=== PATIENT | male | born 2000 | race Caucasian/White ===

== ENCOUNTER 2021-04-07 13:47 | Inpatient (IN) | payer MEDICAID ==
[~2021-04-07] VITALS: Ht 185.4 cm; Wt 66.0 kg
--- NOTE | 2021-04-07 13:54 | NUR ---
PT BROUGHT IN A IFT FROM [place] FOR CHIEF COMPLAINT OF RIGHT HIP FX.
[2021-04-07 14:27] LABS: BASOPHILS % (AUTO) 1 % (0-1); EOSINOPHILS % (AUTO) 1 % (1-7); LYMPHOCYTES % (AUTO) 16 % (22-44); MEAN CORPUSCULAR HEMOGLOBIN 32.1 pg (27.5-34.5); MEAN CORPUSCULAR HGB CONC 33.1 g/dL (33.2-36.2); MEAN PLATELET VOLUME 8.3 fL (7.4-10.4); MONOCYTES % (AUTO) 6 % (2-9); NEUTROPHILS % (AUTO) 76 % (42-75); PLATELET COUNT 284 x10^3/uL (130-400); RED BLOOD COUNT 3.87 x10^6/uL (4.38-5.82); RED CELL DISTRIBUTION WIDTH 13.3 % (9.4-14.8)
[2021-04-07 14:33] LABS: ALANINE AMINOTRANSFERASE 58 U/L (12-78); ALBUMIN 3.4 g/dL (3.4-5.0); ANION GAP 19 mmol/L (5-15); CALCIUM 8.4 mg/dL (8.5-10.1); CHLORIDE 106 mmol/L (98-107); CREATININE 0.91 mg/dL (0.7-1.3)
[2021-04-07 14:36] LABS: ALKALINE PHOSPHATASE 105 U/L (45-117); BILIRUBIN,TOTAL 1.9 mg/dL (0.2-1.0); TOTAL PROTEIN 7.2 g/dL (6.4-8.2)
--- NOTE | 2021-04-07 16:50 | NUR ---
OFF THE FLOOR TO MRI
[2021-04-07] MEDS ORDERED: GADOTERATE 7.5 MMOL/15ML SYR ONE (17:13)
--- NOTE | 2021-04-07 18:15 | NUR ---
PT HAVING BOUTS OF DIARRHEA. PT PLACED IN ADULT DIAPER WITH CHUCKS UNDERNEATH HIM. MD GRAY ADVISED.
[2021-04-07] MEDS ORDERED: PLEASE ENTER ALLERGIES MC SCH (19:00)
[2021-04-07] MEDS ORDERED: SODIUM CHLORIDE FLUSH 10ML SYR IVF ONE (19:00)
[2021-04-07] MEDS ORDERED: SODIUM CHLORIDE FLUSH 10ML SYR IVF PRN (19:00)
[2021-04-07] MEDS ORDERED: SODIUM CHLORIDE 0.9% 1,000ML IVBOLUS ONE (19:00)
[2021-04-07] MEDS ORDERED: ONDANSETRON 2MG/ML, 2ML IVPush ONE (19:00)
[2021-04-07] MEDS ORDERED: MORPHINE SULFATE 4 MG/ML, 1ML IVPush PRN (19:00)
[2021-04-07] MEDS ORDERED: SODIUM CHLORIDE 0.9% 1,000 ML IV ONE (19:00)
--- NOTE | 2021-04-07 19:13 | NUR ---
REPORT RECIEVED FROM VIKRAM JEONG
[2021-04-07] MEDS ORDERED: ONDANSETRON 2MG/ML, 2ML ONE (19:35)
[2021-04-07] MEDS ORDERED: MORPHINE SULFATE 4 MG/ML, 1ML ONE (19:35)
--- NOTE | 2021-04-07 19:43 | NUR ---
PT CLEANED UP, MEDICATED FOR PAIN PER EMAR, BOLUS RUNNING. NO OTHER NEEDS AT THIS TIME
[2021-04-07] MEDS ORDERED: INSU100C SQ-INSULIN (19:46)
[2021-04-07] MEDS ORDERED: INSU100V8 SQ (19:46)
--- NOTE | 2021-04-07 20:07 | NUR ---
hosp at bedside
--- NOTE | 2021-04-07 20:26 | NUR ---
report to donovan mckeon
[2021-04-07] MEDS ORDERED: DOCUSATE 100 MG CAPSULE PO PRN (20:30)
[2021-04-07] MEDS ORDERED: MELATONIN 5 MG TABLET PO PRN (20:30)
[2021-04-07] MEDS ORDERED: ONDANSETRON 2MG/ML, 2ML IVPush PRN (20:30)
[2021-04-07 20:45] VITALS: BP 104/52
[2021-04-07] MEDS: INSULIN LISPRO 100 UNITS/ML, PEN SQ-INSULIN SCH (22:17)
[2021-04-07] MEDS: SODIUM CHLORIDE 0.9% 1,000 ML IV SCH (22:17)
[2021-04-07] MEDS: morphine SULFATE 10 MG/ML, 1ML IVPush PRN (22:44)
[2021-04-08 00:48] VITALS: BP 102/61
[2021-04-08] MEDS: SODIUM CHLORIDE 0.9% 1,000 ML IV SCH ×4 (04:47→12:00)
[2021-04-08] MEDS: morphine SULFATE 10 MG/ML, 1ML IVPush PRN ×2 (04:47→10:14)
[2021-04-08 04:52] LABS: BASOPHILS % (AUTO) 0 % (0-1); EOSINOPHILS % (AUTO) 0 % (1-7); LYMPHOCYTES % (AUTO) 18 % (22-44); MEAN CORPUSCULAR HEMOGLOBIN 32.3 pg (27.5-34.5); MEAN PLATELET VOLUME 8.1 fL (7.4-10.4); MONOCYTES % (AUTO) 9 % (2-9); NEUTROPHILS % (AUTO) 73 % (42-75); PLATELET COUNT 284 x10^3/uL (130-400); RED BLOOD COUNT 3.91 x10^6/uL (4.38-5.82); RED CELL DISTRIBUTION WIDTH 13.1 % (9.4-14.8)
[2021-04-08 05:03] LABS: ANION GAP 25 mmol/L (5-15); CALCIUM 7.5 mg/dL (8.5-10.1); CHLORIDE 107 mmol/L (98-107); CREATININE 1.07 mg/dL (0.7-1.3); INTERNATIONAL NORMALIZED RATIO 0.97 (0.93-1.1); PROTHROMBIN TIME 10.4 Seconds (9.6-11.5)
[2021-04-08 05:14] VITALS: BP 81/39
[2021-04-08] MEDS ORDERED: SODIUM CHLORIDE 0.9% 1,000ML IVBOLUS ONE (05:30)
[2021-04-08 05:54] LABS: O2 FLOW ROOM AIR L/min
[2021-04-08 06:34] LABS: ACETONE, SERUM Large (80mg/dL) (Negative)
[2021-04-08] MEDS: SODIUM CHLORIDE 0.9% 1,000ML IVBOLUS ONE ×2 (07:00→07:07)
[2021-04-08] MEDS: D5%-0.45NACL+KCL 20MEQ 1,000 ML IV SCH ×3 (07:00→22:22)
[2021-04-08] MEDS: INSULIN LISPRO 100 UNITS/ML, PEN SQ-INSULIN SCH ×4 (07:00→20:05)
[2021-04-08] MEDS: REGULAR INSULIN 100 UNITS in SODIUM CHLORIDE 0.9% 99 ML IV PRN (07:03)
[2021-04-08 10:59] LABS: ANION GAP 22 mmol/L (5-15); CALCIUM 6.9 mg/dL (8.5-10.1); CHLORIDE 113 mmol/L (98-107); CREATININE 1.02 mg/dL (0.7-1.3)
[2021-04-08] MEDS ORDERED: CALCIUM GLUCONATE 9.2 MEQ in SODIUM CHLORIDE 0.9% 100 ML IV ONE (11:30)
[2021-04-08] MEDS ORDERED: OXYcodone IR 5MG TABLET ONE (13:15)
[2021-04-08] MEDS: OXYcodone IR 5MG TABLET PO PRN ×2 (13:16→23:05)
[2021-04-08 14:24] LABS: ANION GAP 12 mmol/L (5-15); CALCIUM 7.4 mg/dL (8.5-10.1); CHLORIDE 115 mmol/L (98-107); CREATININE 0.91 mg/dL (0.7-1.3)
[2021-04-08] MEDS ORDERED: POTASSIUM CHLORIDE 20 MEQ TAB.ER.PRT PO ONE (16:00)
[2021-04-08] MEDS ORDERED: POTASSIUM CHLORIDE 20 MEQ in SODIUM CHLORIDE 0.9% 250 ML IV ONE (17:00)
[2021-04-08 19:11] LABS: ANION GAP 12 mmol/L (5-15); CALCIUM 7.5 mg/dL (8.5-10.1); CHLORIDE 115 mmol/L (98-107); CREATININE 0.87 mg/dL (0.7-1.3)
[2021-04-08 22:57] LABS: ANION GAP 10 mmol/L (5-15); CALCIUM 7.7 mg/dL (8.5-10.1); CHLORIDE 114 mmol/L (98-107); CREATININE 0.93 mg/dL (0.7-1.3)
[2021-04-09] MEDS: INSULIN LISPRO 100 UNITS/ML, PEN SQ-INSULIN SCH ×4 (03:02→22:44)
[2021-04-09 03:33] LABS: ANION GAP 8 mmol/L (5-15); CALCIUM 7.7 mg/dL (8.5-10.1); CHLORIDE 112 mmol/L (98-107); CREATININE 0.89 mg/dL (0.7-1.3)
[2021-04-09 03:39] LABS: BASOPHILS % (AUTO) 0 % (0-1); EOSINOPHILS % (AUTO) 1 % (1-7); LYMPHOCYTES % (AUTO) 22 % (22-44); MEAN CORPUSCULAR HEMOGLOBIN 32.7 pg (27.5-34.5); MEAN CORPUSCULAR HGB CONC 34.5 g/dL (33.2-36.2); MEAN PLATELET VOLUME 7.9 fL (7.4-10.4); MONOCYTES % (AUTO) 6 % (2-9); NEUTROPHILS % (AUTO) 70 % (42-75); PLATELET COUNT 255 x10^3/uL (130-400); RED BLOOD COUNT 3.27 x10^6/uL (4.38-5.82); RED CELL DISTRIBUTION WIDTH 12.6 % (9.4-14.8)
[2021-04-09] MEDS: REGULAR INSULIN 100 UNITS in SODIUM CHLORIDE 0.9% 99 ML IV PRN (06:11)
[2021-04-09] MEDS: D5%-0.45NACL+KCL 20MEQ 1,000 ML IV SCH ×2 (06:11→14:50)
[2021-04-09 07:24] LABS: ANION GAP 8 mmol/L (5-15); CALCIUM 7.8 mg/dL (8.5-10.1); CHLORIDE 112 mmol/L (98-107); CREATININE 0.93 mg/dL (0.7-1.3)
[2021-04-09] MEDS ORDERED: DEXTROSE 50%, 50ML SYRINGE IVPush PRN (09:00)
[2021-04-09] MEDS ORDERED: DEXTROSE 4 GM TAB.CHEW PO PRN (09:00)
[2021-04-09] MEDS ORDERED: GLUCAGON 1 MG IM PRN (09:00)
[2021-04-09] MEDS ORDERED: INSULIN GLARGINE 100 UNITS/ML, PEN SQ-INSULIN SCH (09:00)
[2021-04-09] MEDS ORDERED: INSULIN GLARGINE 100 UNITS/ML, PEN SQ-INSULIN ONE ×2 (09:00→21:00)
[2021-04-09] MEDS: SODIUM CHLORIDE FLUSH 10ML SYR IVF SCH ×2 (10:13→22:44)
[2021-04-09 11:09] LABS: ANION GAP 8 mmol/L (5-15); CALCIUM 7.7 mg/dL (8.5-10.1); CHLORIDE 111 mmol/L (98-107); CREATININE 0.84 mg/dL (0.7-1.3)
[2021-04-09] MEDS ORDERED: POTASSIUM CHLORIDE 20 MEQ TAB.ER.PRT PO ONE (12:00)
[2021-04-09] MEDS: OXYcodone IR 5MG TABLET PO PRN (14:09)
[2021-04-09] MEDS: morphine SULFATE 10 MG/ML, 1ML IVPush PRN (14:51)
[2021-04-09 15:04] LABS: ANION GAP 9 mmol/L (5-15); CALCIUM 8.1 mg/dL (8.5-10.1); CHLORIDE 111 mmol/L (98-107); CREATININE 0.83 mg/dL (0.7-1.3)
[2021-04-09] MEDS ORDERED: POTASSIUM CHLORIDE 20 MEQ in SODIUM CHLORIDE 0.9% 250 ML IV ONE (15:30)
[2021-04-09] MEDS ORDERED: FENTANYL PF 250 MCG/5ML ONE (19:06)
[2021-04-09] MEDS ORDERED: MIDAZOLAM 1 MG/ML, 2ML ONE (19:06)
[2021-04-09] MEDS ORDERED: PROPOFOL 10 MG/ML, 20ML ONE (19:15)
[2021-04-09] MEDS ORDERED: ONDANSETRON 2MG/ML, 2ML ONE (19:15)
[2021-04-09] MEDS ORDERED: DEXAMETHASONE 4 MG/ML, 1ML ONE (19:15)
[2021-04-09] MEDS ORDERED: CEFAZOLIN 1,000 MG ONE (19:15)
[2021-04-09] MEDS ORDERED: EPHEDRINE 50 MG/ML, 1ML IVPush PRN (19:30)
[2021-04-09] MEDS ORDERED: LABETALOL 5MG/ML, 20ML IV PRN (19:30)
[2021-04-09] MEDS ORDERED: HYDROmorphone 1 MG/ML, 1ML INJ IVPush PRN (19:30)
[2021-04-09] MEDS ORDERED: ACETAMINOPHEN 325 MG TABLET PO PRN (19:30)
[2021-04-09] MEDS ORDERED: OXYcodone 5 MG/5 ML ORAL.SOL UDC PO PRN (19:30)
[2021-04-09] MEDS ORDERED: PROMETHAZINE 25 MG/ML, 1ML IVPush PRN (19:30)
[2021-04-09] MEDS ORDERED: hydrALAzine 20 MG/ML, 1ML IV PRN (19:30)
[2021-04-09] MEDS ORDERED: FENTANYL PF 100 MCG/2ML IV PRN (19:30)
[2021-04-09] MEDS ORDERED: ONDANSETRON 2MG/ML, 2ML IVPush PRN (19:30)
[2021-04-09] MEDS ORDERED: KETOROLAC 30 MG/1 ML ONE (19:39)
[2021-04-09] MEDS ORDERED: LIDOCAINE-MPF 2% ,5ML ONE (19:39)
[2021-04-09] MEDS ORDERED: EPHEDRINE 50 MG/ML, 1ML ONE (19:39)
[2021-04-09] MEDS ORDERED: OXYcodone 5 MG/5 ML ORAL.SOL UDC ONE (20:43)
[2021-04-09] MEDS ORDERED: ACETAMINOPHEN 650 MG/20.3 ML UDC ONE (20:43)
[2021-04-09] MEDS ORDERED: FENTANYL PF 100 MCG/2ML ONE (20:43)
[2021-04-09 22:10] VITALS: BP 132/87
[2021-04-10 00:10] VITALS: BP 114/71
[2021-04-10 00:13] LABS: ANION GAP 12 mmol/L (5-15); CHLORIDE 107 mmol/L (98-107); CREATININE 0.81 mg/dL (0.7-1.3)
[2021-04-10] MEDS: CEFAZOLIN PMX 2GM/50ML 50 ML IVPB SCH ×3 (03:15→20:41)
[2021-04-10 04:15] VITALS: BP 124/83
[2021-04-10 05:44] LABS: BASOPHILS % (AUTO) 0 % (0-1); CHLORIDE 103 mmol/L (98-107); EOSINOPHILS % (AUTO) 0 % (1-7); LYMPHOCYTES % (AUTO) 6 % (22-44); MEAN CORPUSCULAR HEMOGLOBIN 32.2 pg (27.5-34.5); MEAN CORPUSCULAR HGB CONC 33.2 g/dL (33.2-36.2); MEAN PLATELET VOLUME 8.1 fL (7.4-10.4); MONOCYTES % (AUTO) 2 % (2-9); NEUTROPHILS % (AUTO) 92 % (42-75); PLATELET COUNT 219 x10^3/uL (130-400); RED BLOOD COUNT 3.62 x10^6/uL (4.38-5.82); RED CELL DISTRIBUTION WIDTH 13.3 % (9.4-14.8)
[2021-04-10 05:50] LABS: ANION GAP 16 mmol/L (5-15); CALCIUM 8.6 mg/dL (8.5-10.1)
[2021-04-10] MEDS ORDERED: REGULAR INSULIN 100 UNITS in SODIUM CHLORIDE 0.9% 99 ML IV PRN (06:30)
[2021-04-10] MEDS ORDERED: D5%-0.45NACL+KCL 20MEQ 1,000 ML IV SCH (06:30)
[2021-04-10] MEDS: ACETAMINOPHEN 325 MG TABLET PO PRN ×3 (06:36→21:55)
[2021-04-10] MEDS: OXYcodone IR 5MG TABLET PO PRN ×3 (06:36→21:55)
[2021-04-10] MEDS: INSULIN LISPRO 100 UNITS/ML, PEN SQ-INSULIN SCH ×4 (07:00→21:34)
[2021-04-10] MEDS: SODIUM CHLORIDE 0.9% 1,000 ML IV SCH ×2 (07:56→13:07)
[2021-04-10] MEDS ORDERED: MAGNESIUM SULFATE PMX 2GM/50ML 50 ML IV ONE (08:30)
[2021-04-10] MEDS: ENOXAPARIN 40 MG/0.4 ML SQ SCH (08:37)
[2021-04-10] MEDS: ESCITALOPRAM 10MG TABLET PO SCH (08:37)
[2021-04-10] MEDS: SODIUM CHLORIDE FLUSH 10ML SYR IVF SCH ×2 (08:39→21:32)
[2021-04-10] MEDS ORDERED: INSULIN GLARGINE 100 UNITS/ML, PEN SQ-INSULIN SCH ×2 (09:00→21:00)
[2021-04-10] MEDS: morphine SULFATE 10 MG/ML, 1ML IVPush PRN (10:05)
[2021-04-10] MEDS: TAMSULOSIN 0.4 MG CAP.ER.24H PO SCH (10:05)
[2021-04-10 10:35] LABS: ANION GAP 18 mmol/L (5-15); CALCIUM 8.1 mg/dL (8.5-10.1); CHLORIDE 104 mmol/L (98-107)
[2021-04-10 10:36] LABS: CREATININE 1.26 mg/dL (0.7-1.3)
[2021-04-10 14:04] LABS: ANION GAP 9 mmol/L (5-15); CALCIUM 7.7 mg/dL (8.5-10.1); CHLORIDE 107 mmol/L (98-107); CREATININE 1.04 mg/dL (0.7-1.3)
[2021-04-10] MEDS ORDERED: INSULIN GLARGINE 100 UNITS/ML, PEN SQ-INSULIN ONE (14:30)
[2021-04-10] MEDS ORDERED: POTASSIUM CHLORIDE 20 MEQ TAB.ER.PRT PO ONE (14:30)
[2021-04-10 18:13] LABS: ANION GAP 8 mmol/L (5-15); CALCIUM 8.2 mg/dL (8.5-10.1); CHLORIDE 104 mmol/L (98-107); CREATININE 0.95 mg/dL (0.7-1.3)
[2021-04-10 19:47] VITALS: BP 117/75
[2021-04-10 22:17] LABS: ANION GAP 8 mmol/L (5-15); CALCIUM 7.8 mg/dL (8.5-10.1); CHLORIDE 105 mmol/L (98-107); CREATININE 1.18 mg/dL (0.7-1.3)
[2021-04-11 01:14] VITALS: BP 117/68
[2021-04-11 02:23] LABS: CALCIUM 7.7 mg/dL (8.5-10.1); CREATININE 0.74 mg/dL (0.7-1.3)
[2021-04-11 02:38] LABS: ANION GAP 8 mmol/L (5-15); CHLORIDE 107 mmol/L (98-107)
[2021-04-11] MEDS: INSULIN LISPRO 100 UNITS/ML, PEN SQ-INSULIN SCH ×6 (06:21→21:22)
[2021-04-11] MEDS: OXYcodone IR 5MG TABLET PO PRN ×3 (06:25→19:28)
[2021-04-11] MEDS: ACETAMINOPHEN 325 MG TABLET PO PRN (06:25)
[2021-04-11 06:46] LABS: ANION GAP 8 mmol/L (5-15); CALCIUM 7.8 mg/dL (8.5-10.1); CHLORIDE 108 mmol/L (98-107)
[2021-04-11 06:49] LABS: CREATININE 0.62 mg/dL (0.7-1.3)
[2021-04-11] MEDS ORDERED: POTASSIUM CHLORIDE 20 MEQ TAB.ER.PRT PO ONE (08:00)
[2021-04-11 08:06] VITALS: BP 129/80
[2021-04-11] MEDS: ESCITALOPRAM 10MG TABLET PO SCH (09:18)
[2021-04-11] MEDS: TAMSULOSIN 0.4 MG CAP.ER.24H PO SCH (09:19)
[2021-04-11] MEDS: ENOXAPARIN 40 MG/0.4 ML SQ SCH (09:20)
[2021-04-11] MEDS: INSULIN GLARGINE 100 UNITS/ML, PEN SQ-INSULIN SCH ×2 (09:20→21:23)
[2021-04-11] MEDS: SODIUM CHLORIDE FLUSH 10ML SYR IVF SCH ×2 (09:20→21:14)
[2021-04-11 13:26] VITALS: BP 129/76
[2021-04-11 19:12] VITALS: BP 134/84
[2021-04-12 02:38] VITALS: BP 120/73
[2021-04-12] MEDS: OXYcodone IR 5MG TABLET PO PRN ×2 (04:49→11:42)
[2021-04-12 05:49] LABS: ANION GAP 5 mmol/L (5-15); CALCIUM 8.5 mg/dL (8.5-10.1); CHLORIDE 105 mmol/L (98-107)
[2021-04-12 05:50] LABS: CREATININE 0.56 mg/dL (0.7-1.3)
[2021-04-12 07:20] VITALS: BP 130/82
[2021-04-12] MEDS: INSULIN LISPRO 100 UNITS/ML, PEN SQ-INSULIN SCH ×4 (07:50→11:42)
[2021-04-12] MEDS: SODIUM CHLORIDE FLUSH 10ML SYR IVF SCH (08:56)
[2021-04-12] MEDS: ESCITALOPRAM 10MG TABLET PO SCH (08:56)
[2021-04-12] MEDS: TAMSULOSIN 0.4 MG CAP.ER.24H PO SCH (08:56)
[2021-04-12] MEDS: ENOXAPARIN 40 MG/0.4 ML SQ SCH (08:57)
[2021-04-12] MEDS: INSULIN GLARGINE 100 UNITS/ML, PEN SQ-INSULIN SCH (08:57)
[2021-04-12] MEDS ORDERED: OXYC5TAB98 PO (09:16)
[2021-04-12] MEDS ORDERED: INSU100I13 SQ-INSULIN (09:16)
[2021-04-12] MEDS ORDERED: ESCI10TA97 PO (09:16)
[2021-04-12] MEDS ORDERED: INSU100C SQ-INSULIN (09:16)
[2021-04-12 13:11] VITALS: BP 136/86
== END 2021-04-12 13:55 | disposition home or self-care (01) | DRG 308 ==
LOC: ED 14:45 → EDIP 18:45 → 4NE 20:38 → CCU 04-08 06:30 → EDIP 04-09 22:10 → 4NE 04-09 22:11 → CCU 04-10 08:08 → 4NE 04-10 19:43
PROVIDERS: ADMIT Family Medicine; ATTEND Hospitalist
PROC: 0QS604Z Reposition Right Upper Femur with Internal Fixation Device, Open Approach (ICD-10-PCS; principal; 2021-04-09 14:30)
DX: S72.144A Nondisplaced intertrochanteric fracture of right femur, initial encounter for closed fracture (principal); E10.10 Type 1 diabetes mellitus with ketoacidosis without coma; E10.40 Type 1 diabetes mellitus with diabetic neuropathy, unspecified; Z20.822 Contact with and (suspected) exposure to COVID-19; D64.9 Anemia, unspecified; F12.90 Cannabis use, unspecified, uncomplicated; F32.9 Major depressive disorder, single episode, unspecified; K59.00 Constipation, unspecified; R33.9 Retention of urine, unspecified
CPT/HCPCS: 36415; 36600; 73501; 73502; 76000; 99285; J3490; 71045; 80048; 80053; 82010; 82533; 82607; 82728; 82803; 82947; 82962; 83036; 83540; 83550; 83690; 83735; 84100; 84443; 85025; 85610; 85730; 87081; 87635; 93005; C1713; G0378; J0610; J0690; J1100; J1650; J1815; J1885; J2250; J2405; J2704; J3010; J3480; A9575; J2270; J3475; J7030; J7050